=== PATIENT | female | born 1945 | race Caucasian/White ===

== ENCOUNTER → 2016-10-07 11:26 | Outpatient (CLI) | payer MEDICARE, OTHER | END | disposition home or self-care (01) | LOC: D.MRI 11:26 | DX: M54.5 Low back pain (principal) ==

== ENCOUNTER → 2017-10-09 07:31 | Outpatient (CLI) | payer MEDICARE, OTHER | END | disposition home or self-care (01) | LOC: D.CT 07:31 | DX: R19.00 Intra-abdominal and pelvic swelling, mass and lump, unspecified site (principal) ==